=== PATIENT | female | born 2000 | race Caucasian/White ===

== ENCOUNTER 2023-12-16 13:52 | Inpatient (IN) | payer OTHER ==
[~2023-12-16] VITALS: Ht 157.5 cm; Wt 76.8 kg
[2023-12-18] VITALS (22 sets, daily range): BP systolic 82–113; BP diastolic 30–76; PULSE 65–101; TEMP 97.5–100
--- NOTE | 2023-12-18 05:38 | NUR ---
PT ARRIVED AMBULATORY WITH S.O. TO ROOM 211 FOR SCHEDULED . PT CHANGED TO GOWN AND THEN EFM APPLIED. DISCUSSED POC WITH PT WHO AGREES WITH PLAN. PT REPORTS ACTIVE MOVEMENTS. DENIES VAGINAL BLEEDING OR LOF. DENIES CONTRACTIONS OR PAIN.
[2023-12-18] MEDS ORDERED: Ondansetron 4 MG/2 ML VIAL IV PRN ×2 (06:15→08:30)
[2023-12-18] MEDS ORDERED: LR 1,000 ML IV SCH ×2 (06:15)
[2023-12-18] MEDS ORDERED: droPERidol 2.5 MG/ML 2 ML VIAL IV PRN (06:15)
--- NOTE | 2023-12-18 06:15 | NUR ---
CARE RECIEVED FROM ESTHER SIMPSON RN. PATIENT ARRIVED ON UNIT AROUND 0530. PATIENT RESTING IN BED. IV IS IN LEFT HAND AND 1ST BAG OF LACTATED RINGER'S IS RUNNING. LABS HAVE BEEN COLLECTED. EFM AND TOCO MONITORING ON.
[2023-12-18 07:03] LABS: BASO % 0.3 % (0.0-2.0); EOS # 0.1 K/mm3 (0.0-0.7); EOS % 0.9 % (0.0-4.0); GRAN # 6.5 K/mm3 (1.4-6.5); GRAN % 71.1 % (42.2-75.2); LYMPH # 1.9 K/mm3 (1.2-3.4); LYMPH % 20.3 % (20.0-51.0); MEAN CELL VOLUME 102 fl (80.0-100.0); MEAN CORPUSCULAR HGB CONC 33 g/dl (33.0-37.0); MONO # 0.6 K/mm3 (0.1-0.6); MONO % 6.5 % (1.7-9.3); PLATELET COUNT 216 K/mm3 (130-400); RED BLOOD COUNT 2.89 M/mm3 (4.10-5.30); REDCELL DISTRIBUTION WIDTH-CV 13.1 % (11.5-14.5)
[2023-12-18 07:04] LABS: HEMATOCRIT 29.4 % (37.0-47.0); HEMOGLOBIN 9.7 g/dl (12.5-16.0); MEAN CORPUSCULAR HEMOGLOBIN 34 pg (27-31)
[2023-12-18] MEDS ORDERED: Oxytocin 10 UNITS/ML VIAL ONE (07:11)
[2023-12-18] MEDS ORDERED: NS 30 ML IV ONE (07:11)
[2023-12-18] MEDS ORDERED: Ondansetron 4 MG/2 ML VIAL ONE (07:11)
[2023-12-18] MEDS ORDERED: Ketorolac 30 MG/ML VIAL ONE (07:11)
[2023-12-18] MEDS ORDERED: Phenylephrine 10 MG/ML VIAL ONE (07:11)
[2023-12-18] MEDS ORDERED: PRENATAL TABLET PO (07:16)
[2023-12-18] MEDS ORDERED: EPINEPHrine 1 MG/1 ML Ampule ONE (07:25)
--- NOTE | 2023-12-18 07:52 | NUR ---
VACCUM ASSISTED DELIVERY IN SECTION. STARTING AT 0751 VACCUM WAS APPLIED X3 TO HEAD BY DR. PEÑA.TWO POP OFFS WERE OBSERVED. WITH THIRD APPLICATION HEAD WAS DELIVERED AT 0752.
[2023-12-18] MEDS ORDERED: Naloxone 0.4 MG/ML VIAL IV PRN (08:30)
[2023-12-18] MEDS ORDERED: Measles/Mumps/Rubella Virus Vaccine Live w Diluent 0.5 ML VIAL SQ SCH (08:30)
[2023-12-18] MEDS ORDERED: Loratadine 10 MG TAB PO PRN (08:30)
[2023-12-18] MEDS ORDERED: Magnes Hydrox (MOM) 80 MG/ML 30 ML CUP PO PRN (08:30)
[2023-12-18] MEDS ORDERED: LR 1,000 ML IV PRN (08:30)
[2023-12-18] MEDS ORDERED: oxyCODONE/Acetaminophen 5-325 MG TAB PO PRN (08:30)
--- NOTE | 2023-12-18 08:36 | NUR ---
PATIENT CURRENTLY IN PACU THIS RN AND SAHIL SHEETS AT BEDSIDE. TRANSCRIBER MADE AWARE OF PATIENT'S BOOD PRESSURE BEING 95/54, AND 95/51. PATIENT STATES SHE IS NOT EXPIERECING ANY SYMPTOMS OF DIZZINESS OR LIGHT HEADEDNESS AT THIS TIME. INSTRUCTIONS FROM TRANSCRIBER ARE TO NOTIFY HIM IF SYSTOLIC PRESSURE REACHES BELOW 80.
[2023-12-18] MEDS ORDERED: PERCOCET 325 MG1 TA2 PO (08:39)
[2023-12-18] MEDS ORDERED: IBU800 M1 PO (08:39)
[2023-12-18] MEDS ORDERED: Influenza Virus Vaccine, Trivalent '24-25 0.5 ML SYRINGE IM SCH (14:00)
[2023-12-18] MEDS ORDERED: Ibuprofen 800 MG TAB PO SCH (14:28)
--- NOTE | 2023-12-18 16:10 | NUR ---
PATIENT ASSISTED TO EDGE OF BED. PATIENT CAT ASSISTED X 1 RN TO BATHROOM. RUBIN CATHETER DISCONTINUED. PERICARE COMPLETED. PATIENT ABLE TO VOID. PATIENT KIKI ASSISTED BACK TO BED.
[2023-12-18] MEDS ORDERED: Sennosides/Docusate 8.6-50 MG TAB PO SCH (17:00)
--- NOTE | 2023-12-18 19:40 | NUR ---
Pt with extreme R shoulder painCrying and gasping. Warm blanket, percocet and explanation provided.
[2023-12-18] MEDS ORDERED: traZODone 50 MG TAB PO PRN (21:00)
[2023-12-19 02:00] VITALS: BP 118/70; PULSE 70; TEMP 97.3
[2023-12-19 08:59] VITALS: BP 112/70; PULSE 90; TEMP 98.5
--- NOTE | 2023-12-19 11:02 | NUR ---
Initial visit; Parents thanked Cadd Operator for looking in on them and offering congratulations and God's blessings for the of their daughter. Cadd Operator thanked family for choosing [facility].
[2023-12-19 15:53] VITALS: BP 102/62; PULSE 78; TEMP 98.2
[2023-12-19 19:15] VITALS: BP 106/65; PULSE 82; TEMP 98.2
[2023-12-20 07:57] VITALS: BP 117/63; PULSE 68; TEMP 97.8
[2023-12-20] MEDS ORDERED: Witch Hazel 50% Pads Bulk TUB TP PRN (08:15)
[2023-12-20] MEDS ORDERED: Influenza Virus Vaccine, Trivalent '24-25 0.5 ML SYRINGE IM SCH (09:00)
--- NOTE | 2023-12-20 11:47 | NUR ---
PT GIVEN BOTH WRITTEN AND VERBAL DISCHARGE INSTRUCTIONS. PT ENCOURAGED TO KEEP ALL SCHEDULED FOLLOW UP APPOINTMENTS. PT EDUCATED ON REASONS TO BE SEEN BY A MEDICAL PROFESSIONAL. PT VERBALIZES UNDERSTANDING AND HAS NO QUESTIONS AT THIS TIME.
== END 2023-12-20 11:35 | disposition home or self-care (01) | DRG 788 ==
LOC: OB 12-18 05:30
PROVIDERS: ADMIT Student in an Organized Health Care Education/Training Program
PROC: 10D00Z1 Extraction of Products of Conception, Low, Open Approach (ICD-10-PCS; principal; 2023-12-18)
DX: O32.1XX0 Maternal care for breech presentation, not applicable or unspecified (principal); O99.824 Streptococcus B carrier state complicating childbirth; O99.344 Other mental disorders complicating childbirth; F41.9 Anxiety disorder, unspecified; O34.03 Maternal care for unspecified congenital malformation of uterus, third trimester; Q51.3 Bicornate uterus; Z3A.39 39 weeks gestation of pregnancy; Z37.0 Single live birth; Z80.49 Family history of malignant neoplasm of other genital organs
CPT/HCPCS: A9284; J0171; J0665; J0690; J1100; J1885; J2371; J2405; J2590; J7120